=== PATIENT | female | born 1985 | race Caucasian/White ===

== ENCOUNTER 2017-10-29 12:18 | Emergency (ER) | payer MEDICAID ==
[2017-10-29] MEDS ORDERED: Ketorolac INJ* 60 MG/2 ML VIAL IM ONE (12:42)
[2017-10-29] MEDS ORDERED: Orphenadrine Citrate IV* 30 MG/ML 2 ML VIAL IM ONE (12:42)
--- NOTE | 2017-10-29 14:29 | RAD ---
HISTORY: Chronic back pain COMPARISONS: None VIEWS: 6 , Frontal, lateral, coned-down lateral sacral, and bilateral oblique views of the lumbar spine. FINDINGS: ALIGNMENT: There is straightening of the normal lumbar lordosis. VERTEBRAL BODIES: The vertebral body heights are normal. The interpedicular distances are normal. There is partial sacralization of the L5 vertebral body. JOINTS: The facet joints are normal. INTERVERTEBRAL DISCS: The intervertebral disc heights are normal. SOFT TISSUE: Unremarkable. OTHER: The pelvis is unremarkable. The lung bases are clear. IMPRESSION: UNREMARKABLE RADIOGRAPHS OF THE LUMBAR SPINE.
[2017-10-29 15:07] VITALS: BP 125/64
--- NOTE | 2017-10-31 02:44 | ED ---
Jaiden Kc Stephanie, scribed for Caleb Walker on 10/29/17 at 1252 . Back Pain - HPI Summary HPI Summary: The pt is a 32 y/o F presenting to the ED with c/o back pain that began today s/ p bending over. She reports she was leaning over a chair and felt something "pop " in right lower back and had new increased pain. Symptoms include tingling in upper extremities bilaterally. The pt reports chronic back pain for the past 2 months. The pt denies numbness and tingling in lower extremities bilaterally, incontinence and flank pain. Aggravating factors include movement, lifting and bending. - History of Current Complaint Chief Complaint: EDBackInjuryPain Stated Complaint: BACK PAIN Time Seen by Provider: 10/29/17 12:34 Hx Obtained From: Patient Hx Last Menstrual Period: 05/28/16 Onset/Duration: Sudden Onset, Lasting Hours, Still Present Onset/Duration: Started Hours Ago, Still Present Timing: Constant Severity Currently: Moderate Pain Intensity: 7 Pain Scale Used: 0-10 Numeric Aggravating Symptom(s): Movement, Lifting, Bending Alleviating Symptom(s): Nothing Associated Signs And Symptoms: Positive: Numbness - upper extremity bilaterally. Negative: Flank Pain, Bowel Incontinence - Allergies/Home Medications Allergies/Adverse Reactions: Allergies Allergy/AdvReac Type Severity Reaction Status Date / Time Ciprofloxacin AdvReac Intermediate Vomiting Verified 07/31/15 18:33 PMH/Surg Hx/FS Hx/Imm Hx Endocrine/Hematology History: Denies: Hx Diabetes, Hx Thyroid Disease Cardiovascular History: Denies: Hx Hypertension Respiratory History: Denies: Hx Asthma, Hx Chronic Obstructive Pulmonary Disease (COPD) GI History: Denies: Hx Ulcer Psychiatric History: Reports: Hx Anxiety - social, possible ADHD - Surgical History Surgery Procedure, Year, and Place: None. Infectious Disease History: No Infectious Disease History: Denies: Hx Hepatitis, Hx Human Immunodeficiency Virus (HIV), Traveled Outside the [place] in Last 30 Days - Family History Known Family History: Positive: Cardiac Disease - HTN, Other - hernia, cancer - Social History Lives: With Family Alcohol Use: None Substance Use Type: Reports: None Substance Use Comment - Amount & Last Used: Former drug user-experimented with cocaine, others in her early 20's Smoking Status (MU): Current Some Day Smoker Review of Systems Negative: Fever Negative: flank pain, incontinence Positive: Other - back pain Neurological: Other - upper extremity tingling. Negative: Lower extremity tingling All Other Systems Reviewed And Are Negative: Yes Physical Exam - Summary Physical Exam Summary: Appearance: Well appearing, no pain distress Skin: warm, dry, reflects adequate perfusion Head/face: normal Eyes: EOMI, JACQUELINE ENT: normal Neck: supple, non-tender Respiratory: CTA, breath sounds present Cardiovascular: RRR, pulses symmetrical Abdomen: non-tender, soft Bowel: present Musculoskeletal: strength/ROM intact, spastic in L side of lumbar spine Neuro: normal, sensory motor intact, A&Ox3 Triage Information Reviewed: Yes Vital Signs On Initial Exam: Initial Vitals Temp Pulse Resp BP Pulse Ox 97.8 F 99 17 127/74 97 10/29/17 12:29 10/29/17 12:29 10/29/17 12:29 10/29/17 12:29 10/29/17 12:29 Vital Signs Reviewed: Yes Diagnostics - Vital Signs Vital Signs Temp Pulse Resp BP Pulse Ox 10/29/17 12:29 97.8 F 99 17 127/74 97 - Laboratory Lab Statement: Any lab studies that have been ordered have been reviewed, and results considered in the medical decision making process. - Radiology XRay lumbar spine Xray Interpretation: No Acute Changes Radiology Interpretation Completed By: Radiologist - UNREMARKABLE RADIOGRAPHS OF THE LUMBAR SPINE. Back Pain Course/Dx - Course Course Of Treatment: The pt is a 32 y/o F presenting to the ED with c/o back pain that began today s/p bending over. ED physician discussed normal imaging results with the pt and provided pain medication. Pt feels better. Pt will be discharged and is encouraged to follow up with PCP in 3 days. - Diagnoses Provider Diagnoses: Back pain, Muscle strain Discharge - Discharge Plan Condition: Stable Disposition: HOME Referrals: Sonali Raygoza NP [Primary Care Provider] - 3 Days Additional Instructions: Pt is encouraged to follow up with PCP in 3 days. The documentation as recorded by the Jaiden carr Stephanie accurately reflects the service I personally performed and the decisions made by Aaron alvarez Emmanuel.
== END 2017-10-29 15:06 | disposition home or self-care (01) ==
LOC: ED 12:18
DX: S39.012A Strain of muscle, fascia and tendon of lower back, initial encounter (principal); X50.9XXA Other and unspecified overexertion or strenuous movements or postures, initial encounter
CPT/HCPCS: 72110; 96372; 99282; J1885; J2360

== ENCOUNTER 2018-03-09 11:22 | Emergency (ER) | payer MEDICAID ==
[2018-03-09 11:32] VITALS: BP 146/86
[2018-03-09] MEDS ORDERED: Ibuprofen TAB* 800 MG PO ONE (12:35)
--- NOTE | 2018-03-09 12:39 | ED ---
Lower Extremity - HPI Summary HPI Summary: Patient presents with right ankle pain after accidentally rolling up prior to arrival. She was walking and as she stepped off the sidewalk, she inverted her ankle. She has swelling over the lateral aspect pain in the ankle and foot and feels like the top of her foot is numb. Denies weakness although she has pain with moving her toes and ankle. She is pain with weightbearing. Denies any other injuries to this area as result of her misstep. She does admit she's rolled his ankle in the past. Has not tried anything for pain prior to arrival. NOTE:Pt reports no risk of . She is to a woman. - History of Current Complaint Chief Complaint: EDExtremityLower Stated Complaint: RT ANKLE PAIN Time Seen by Provider: 03/09/18 11:58 Hx Obtained From: Patient Hx Last Menstrual Period: 05/28/16 Pain Intensity: 7 - Allergies/Home Medications Allergies/Adverse Reactions: Allergies Allergy/AdvReac Type Severity Reaction Status Date / Time ciprofloxacin Allergy Nausea And Verified 03/09/18 11:42 Vomiting Home Medications: Home Medications Ranitidine TAB (NF) [Zantac TAB (NF)] 150 mg PO BID PRN 03/09/18 [History Confirmed 03/09/18] PMH/Surg Hx/FS Hx/Imm Hx Previously Healthy: Yes Endocrine/Hematology History: Denies: Hx Anticoagulant Therapy, Hx Blood Disorders, Hx Diabetes, Hx Thyroid Disease Cardiovascular History: Denies: Hx Hypertension Respiratory History: Denies: Hx Asthma, Hx Chronic Obstructive Pulmonary Disease (COPD) GI History: Denies: Hx Ulcer Psychiatric History: Reports: Hx Anxiety - social, possible ADHD - Surgical History Surgery Procedure, Year, and Place: None. Infectious Disease History: No Infectious Disease History: Denies: Hx Hepatitis, Hx Human Immunodeficiency Virus (HIV), Traveled Outside the [place] in Last 30 Days - Family History Known Family History: Positive: Hypertension, Other - dad - high cholesterol, emphysema; mom lymphoma - Social History Occupation: Employed Full-time - nanny - self employed Lives: With Family - and kid Alcohol Use: Weekly Hx Substance Use: No Substance Use Type: Reports: None Substance Use Comment - Amount & Last Used: Former drug user-experimented with cocaine, others in her early 20's Hx Tobacco Use: Yes Smoking Status (MU): Current Some Day Smoker Review of Systems Constitutional: Negative Positive: no symptoms reported Positive: Arthralgia, Myalgia, Decreased ROM, Edema Positive: Bruising Positive: Paresthesia Psychological: Normal All Other Systems Reviewed And Are Negative: Yes Physical Exam Triage Information Reviewed: Yes Vital Signs On Initial Exam: Initial Vitals Temp Pulse Resp BP Pulse Ox 97.7 F 88 18 146/86 99 03/09/18 11:27 03/09/18 11:27 03/09/18 11:27 03/09/18 11:27 03/09/18 11:27 Vital Signs Reviewed: Yes Appearance: Positive: Well-Appearing, Pain Distress, Obese Skin: Positive: Warm, Skin Color Reflects Adequate Perfusion, Dry - Rt lateral ankle edematous, TTP and w/ early signs of bruising - no skin breakdown Head/Face: Positive: Normal Head/Face Inspection Eyes: Positive: Normal, EOMI ENT: Positive: Hearing grossly normal Respiratory/Lung Sounds: Positive: Breath Sounds Present Cardiovascular: Positive: Pulses are Symmetrical in both Upper and Lower Extremities Musculoskeletal: Positive: Limited @ - Rt ankle, toes d/t pain Neurological: Positive: Alert, Oriented to Person Place, Time, CN Intact II- III. Negative: Sensory/Motor Intact - limited 2ndry to pain and swelling Diagnostics - Vital Signs Vital Signs Temp Pulse Resp BP Pulse Ox 03/09/18 11:27 97.7 F 88 18 146/86 99 - Laboratory Lab Statement: Any lab studies that have been ordered have been reviewed, and results considered in the medical decision making process. Lower Extremity Course/Dx - Diagnoses Provider Diagnoses: Right ankle sprain Discharge - Sign-Out/Discharge Documenting (check all that apply): Discharge/Admit/Transfer - Discharge Plan Condition: Stable Disposition: HOME Patient Education Materials: Ankle Sprain (ED), Ankle Stirrup Splint (ED), Crutch Instructions (ED) Referrals: Sonali Raygoza NP [Primary Care Provider] - Additional Instructions: REST, ICE, ELEVATE AND USE SPLINT AND BASIM WRAP TO HELP WITH SUPPORT AND SWELLING. You do not have to wear splint when you are sleeping You may take ibuprofen 800mg every 8 hours with food alternating with acetaminophen 650mg every 6 hours as needed for pain Follow-up with your PCP in 1-2 weeks if symptoms persist or worsen *If you develop numbness, tingling, weakness, swelling or skin discoloration, loosen BASIM wrap and elevate arm for 20 minutes. If symptoms persist, return to ED - Billing Disposition and Condition Condition: STABLE Disposition: Home
--- NOTE | 2018-03-09 12:40 | RAD ---
HISTORY: Rt ankle rolling injury COMPARISONS: None VIEWS: 3, Frontal, lateral, and oblique views of the right ankle FINDINGS: BONE DENSITY: Normal. BONES: There is no displaced fracture. JOINTS: There is no arthropathy. ALIGNMENT: There is no dislocation. SOFT TISSUES: There is soft tissue swelling along the lateral malleolus. OTHER FINDINGS: None. IMPRESSION: SOFT TISSUE SWELLING. NO ACUTE OSSEOUS INJURY. IF SYMPTOMS PERSIST, RECOMMEND REPEAT IMAGING.
== END 2018-03-09 12:57 | disposition home or self-care (01) ==
LOC: ED 11:22
DX: S93.401A Sprain of unspecified ligament of right ankle, initial encounter (principal); X50.0XXA Overexertion from strenuous movement or load, initial encounter; F17.200 Nicotine dependence, unspecified, uncomplicated; Z88.3 Allergy status to other anti-infective agents
CPT/HCPCS: 99283; A9270-GY

== ENCOUNTER 2018-04-06 12:09 | Emergency (ER) | payer MEDICAID ==
--- NOTE | 2018-04-06 12:57 | RAD ---
INDICATION: RIGHT wrist pain and swelling with most pain lateral aspect post fall with hyperextension. Decreased range of motion. COMPARISON: No relevant prior exams available on the [facility] for comparison. TECHNIQUE: AP and lateral views RIGHT wrist. REPORT: No cortical disruption or suspicious trabecular irregularity to suggest fracture. Normal articular alignment. Unremarkable soft tissue contours. IMPRESSION: #. No radiographic evidence for RIGHT wrist traumatic injury. #. If there is high index of suspicion for an occult scaphoid fracture repeat exam in 7 - 10 days would be suggested.
[2018-04-06 13:28] VITALS: BP 128/106
--- NOTE | 2018-04-06 13:40 | ED ---
Upper Extremity Pain - HPI Summary HPI Summary: Patient is an otherwise healthy 32-year-old female presenting to the ED with right wrist injury after falling while mowing her lawn. Injury is a FOOSH injury. Denies any numbness or tingling. Small amount of swelling to the radial side of the wrist. Denies any pain to the elbow. Denies any pain to the fingertips. She is able to make a fist. Symptoms are worse with flexion and better with full extension of the wrist. She has not taken any ibuprofen [employer]. Injury was sustained last evening. She denies any other injuries or concerns at this time. - History of Current Complaint Chief Complaint: EDExtremityUpper Stated Complaint: RT WRIST PAIN Hx Obtained From: Patient Hx Last Menstrual Period: 05/28/16 Mechanism Of Injury: Other - FOOSH injury Onset/Duration: Started Days Ago Timing: Constant Severity Initially: Moderate Severity Currently: Moderate Pain Location: Wrist Character: Aching Aggravating Factor(s): Movement, Lifting, Flexion, Extension Alleviating Factor(s): Rest, Ice Associated Signs & Symptoms: Positive: Swelling. Negative: Redness, Bruising, Numbness/Tingling, Diaphoresis, Nausea, Vomiting Related History: Dominant Hand Right - Risk Factors Non-Orthopedic Risk Factor: Negative DVT Risk Factors: Negative Septic Arthritis Risk Factor: Negative Compartment Syndrome Risk Factors: Pain - Allergies/Home Medications Allergies/Adverse Reactions: Allergies Allergy/AdvReac Type Severity Reaction Status Date / Time ciprofloxacin AdvReac Severe Nausea And Verified 04/06/18 12:13 Vomiting Home Medications: Home Medications Meloxicam [Mobic] 15 mg PO DAILY PRN 04/06/18 [History Confirmed 04/06/18] Methocarbamol TAB* [Robaxin 500 MG TAB*] 500 mg PO TID PRN 04/06/18 [History Confirmed 04/06/18] PMH/Surg Hx/FS Hx/Imm Hx Previously Healthy: Yes Endocrine/Hematology History: Denies: Hx Anticoagulant Therapy, Hx Blood Disorders, Hx Diabetes, Hx Thyroid Disease Cardiovascular History: Denies: Hx Hypertension Respiratory History: Denies: Hx Asthma, Hx Chronic Obstructive Pulmonary Disease (COPD) GI History: Denies: Hx Ulcer Psychiatric History: Reports: Hx Anxiety - social, possible ADHD - Surgical History Surgery Procedure, Year, and Place: None. - Immunization History Hx Pertussis Vaccination: No Immunizations Up to Date: Unable to Obtain/Confirm Infectious Disease History: No Infectious Disease History: Denies: Hx Hepatitis, Hx Human Immunodeficiency Virus (HIV), Traveled Outside the [place] in Last 30 Days - Family History Known Family History: Positive: Hypertension, Other - dad - high cholesterol, emphysema; mom lymphoma - Social History Occupation: Employed Part-time Lives: With Family Alcohol Use: Weekly Hx Substance Use: No Substance Use Type: Reports: None Substance Use Comment - Amount & Last Used: Former drug user-experimented with cocaine, others in her early 20's Hx Tobacco Use: Yes Smoking Status (MU): Current Some Day Smoker Review of Systems Constitutional: Negative Negative: Fever, Chills, Fatigue, Skin Diaphoresis Negative: Palpitations, Chest Pain Negative: Shortness Of Breath, Cough Negative: Abdominal Pain, Vomiting, Diarrhea, Nausea Genitourinary: Negative Positive: no symptoms reported, see HPI Positive: Arthralgia - right wrist pain Skin: Negative Neurological: Negative All Other Systems Reviewed And Are Negative: Yes Physical Exam Triage Information Reviewed: Yes Vital Signs On Initial Exam: Initial Vitals Temp Pulse Resp BP Pulse Ox 96.5 F 79 17 142/96 100 04/06/18 12:10 04/06/18 12:10 04/06/18 12:10 04/06/18 12:10 04/06/18 12:10 Vital Signs Reviewed: Yes Appearance: Positive: Well-Appearing, Well-Nourished Skin: Positive: Warm, Skin Color Reflects Adequate Perfusion Head/Face: Positive: Normal Head/Face Inspection Eyes: Positive: EOMI, JACQUELINE, Conjunctiva Clear Neck: Positive: Supple, No Lymphadenopathy Respiratory/Lung Sounds: Positive: Clear to Auscultation, Breath Sounds Present Cardiovascular: Positive: RRR, Pulses are Symmetrical in both Upper and Lower Extremities Musculoskeletal: Positive: Pain @ - right wrist with decreased ROM d/t pain - no deformity noted Neurological: Positive: Sensory/Motor Intact, Alert, Oriented to Person Place, Time, Speech Normal Psychiatric: Positive: Normal, Affect/Mood Appropriate Diagnostics - Vital Signs Vital Signs Temp Pulse Resp BP Pulse Ox 04/06/18 13:25 97.0 F 88 16 128/106 100 04/06/18 12:10 96.5 F 79 17 142/96 100 - Laboratory Lab Statement: Any lab studies that have been ordered have been reviewed, and results considered in the medical decision making process. Course/Dx - Course Course Of Treatment: During the course of treatment, the patient is evaluated for right wrist injury which occurred last evening. Denies any numbness or tingling. Pulses +2 intact bilaterally. Good cap refill. Flexion with pain, full extension without tenderness. Tenderness on palpation of the right radial side of the wrist with a small amount of swelling. X-ray obtained which shows no acute findings, however an occult scaphoid fracture could not be completely ruled out. I discussed with the patient to follow up with orthopedic clinic if symptoms fail to improve. She is agreeable to this. Thumb spica given. Ice, elevation, compression, thumb splint and will periodically attempt to provide range of motion to the thumb to assess improvement. She voices no concerns at this time. - Diagnoses Differential Diagnosis/HQI/PQRI: Positive: Fracture (Open), Strain, Sprain Provider Diagnoses: Sprain of right wrist Discharge - Sign-Out/Discharge Documenting (check all that apply): Discharge/Admit/Transfer - Discharge Plan Condition: Stable Disposition: HOME Patient Education Materials: Wrist Sprain (ED) Referrals: No Primary Care Phys,NOPCP [Primary Care Provider] - Veena Lopez MD [Medical Doctor] - Additional Instructions: Please follow up with Dr. Lopez if symptoms persist 7 days Ibuprofen 600 mg 3 times daily for the next 3-4 days Elevate as much as possible Ice to the area throughout the day Keep the splint applied until the area begins to improve and feel better - Billing Disposition and Condition Condition: STABLE Disposition: Home
== END 2018-04-06 13:35 | disposition home or self-care (01) ==
LOC: ED 12:09
DX: S63.501A Unspecified sprain of right wrist, initial encounter (principal); W01.0XXA Fall on same level from slipping, tripping and stumbling without subsequent striking against object, initial encounter; Y93.H9 Activity, other involving exterior property and land maintenance, building and construction; Z88.1 Allergy status to other antibiotic agents; F17.200 Nicotine dependence, unspecified, uncomplicated
CPT/HCPCS: 99282

== ENCOUNTER 2019-02-05 12:10 | Emergency (ER) | payer MEDICAID, OTHER ==
[2019-02-05 12:21] VITALS: BP 150/101
--- NOTE | 2019-02-05 12:58 | UC ---
Throat Pain/Nasal Howard HPI - HPI Summary HPI Summary: 33-year-old woman comes in with chief complaint of 6 days of upper story tract infection symptoms. She's had a runny nose with green rhinorrhea. She has frontal sinus pressure. When she lays down at night she gets postnasal drip and then coughs up a lot of green sputum. No wheezing no shortness of breath otherwise. She's had chills has not checked her temperature. She's been trying stain which does help with the symptoms. - History of Current Complaint Chief Complaint: UCGeneralIllness Stated Complaint: sinus Time Seen by Provider: 02/05/19 12:50 Hx Last Menstrual Period: 01/16/19 Pain Intensity: 2 - Allergies/Home Medications Allergies/Adverse Reactions: Allergies Allergy/AdvReac Type Severity Reaction Status Date / Time ciprofloxacin AdvReac Severe Nausea And Verified 02/05/19 12:21 Vomiting PMH/Surg Hx/FS Hx/Imm Hx Previously Healthy: Yes Other History Of: Negative For: Anticoagulant Therapy - Surgical History Surgical History: None Surgery Procedure, Year, and Place: None. - Family History Known Family History: Positive: Hypertension, Other - dad - high cholesterol, emphysema; mom lymphoma - Social History Alcohol Use: Weekly Substance Use Type: None Substance Use Comment - Amount & Last Used: Former drug user-experimented with cocaine, others in her early 20's Smoking Status (MU): Light Every Day Tobacco Smoker - Immunization History Most Recent Influenza Vaccination: declines Most Recent Tetanus Shot: pt declines Most Recent Pneumonia Vaccination: n/a Review of Systems All Other Systems Reviewed And Are Negative: Yes Constitutional: Positive: Chills Skin: Positive: Negative Eyes: Positive: Negative ENT: Positive: Nasal Discharge, Sinus Congestion, Sinus Pain/Tenderness Respiratory: Positive: Other - see hpi Cardiovascular: Positive: Negative Gastrointestinal: Positive: Negative Motor: Positive: Negative Neurovascular: Positive: Negative Musculoskeletal: Positive: Arthralgia Neurological: Positive: Negative Psychological: Positive: Negative Is Patient Immunocompromised?: No Physical Exam Triage Information Reviewed: Yes Appearance: Well-Appearing, No Pain Distress, Well-Nourished Vital Signs: Initial Vital Signs Temp 96.8 F 02/05/19 12:17 Pulse 86 02/05/19 12:17 Resp 18 02/05/19 12:17 BP 150/101 02/05/19 12:17 Pulse Ox 100 02/05/19 12:17 Vital Signs Reviewed: Yes Eye Exam: Normal Eyes: Positive: Conjunctiva Clear ENT: Positive: Pharyngeal erythema, Nasal congestion, Nasal drainage, TMs normal Neck: Positive: Supple Respiratory: Positive: Lungs clear, Normal breath sounds, No respiratory distress Cardiovascular: Positive: RRR Musculoskeletal Exam: Normal Musculoskeletal: Positive: Strength Intact, ROM Intact Neurological Exam: Normal Neurological: Positive: Alert, Muscle Tone Normal Psychological Exam: Normal Psychological: Positive: Age Appropriate Behavior Skin Exam: Normal Throat Pain/Nasal Course/Dx - Course Course Of Treatment: DISCUSSED VIRAL VERSES BACTERIAL INFECTION AND THE ROLE OF ANTIBIOTICS. THE PATIENT PREFERS TO BE ON ANTIBIOTICS AT THIS TIME. - Differential Dx/Diagnosis Provider Diagnosis: Sinusitis Discharge - Sign-Out/Discharge Documenting (check all that apply): Patient Departure All imaging exams completed and their final reports reviewed: No Studies - Discharge Plan Condition: Stable Disposition: HOME Prescriptions: Amoxicillin PO (*) [Amoxicillin 875 MG (*)] 875 mg PO BID #20 tab Patient Education Materials: Sinusitis (ED) Referrals: Sade Roper NP [Primary Care Provider] - Additional Instructions: FOLLOW UP WITH YOUR DOCTOR IF NOT COMPLETELY IMPROVED. GET REEVALUATED SOONER IF YOUR CONDITION WORSENS OR ANY QUESTIONS OR CONCERNS. - Billing Disposition and Condition Condition: STABLE Disposition: Home
== END 2019-02-05 13:05 | disposition home or self-care (01) ==
LOC: UCEAST 12:10
DX: J32.9 Chronic sinusitis, unspecified (principal); R68.83 Chills (without fever); Z88.1 Allergy status to other antibiotic agents; F17.200 Nicotine dependence, unspecified, uncomplicated
CPT/HCPCS: 99212; G0463

== ENCOUNTER 2019-06-14 17:22 | Emergency (ER) | payer OTHER ==
[2019-06-14 17:51] VITALS: BP 143/80
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
[2019-06-14] MEDS ORDERED: Ibuprofen TAB* 600 MG PO ONE (18:34)
--- NOTE | 2019-06-15 09:04 | UC ---
- Progress Note Progress Note: wet read correct Course/Dx - Diagnoses Provider Diagnoses: Sprain of shoulder, left Discharge ED - Sign-Out/Discharge Documenting (check all that apply): Post-Discharge Follow Up All imaging exams completed and their final reports reviewed: Yes - Discharge Plan Condition: Stable Disposition: HOME Patient Education Materials: Shoulder Sprain (ED) Referrals: [facility] [Provider Group] Guy Gomez MD [Medical Doctor] - Additional Instructions: Wear sling to rest and immobilize your left shoulder. Complete light shoulder exercises demonstrated to avoid frozen shoulder. Continue rest, ice, and over the counter pain medications as directed for pain relief. Follow up with sports medicine or orthopedics referral as listed below if pain persists or worsens. - Billing Disposition and Condition Condition: STABLE Disposition: Home
== END 2019-06-14 19:01 | disposition home or self-care (01) ==
LOC: UCEAST 17:22
DX: S43.402A Unspecified sprain of left shoulder joint, initial encounter (principal); V48.4XXA Person boarding or alighting a car injured in noncollision transport accident, initial encounter; Y92.9 Unspecified place or not applicable; F41.9 Anxiety disorder, unspecified; F17.210 Nicotine dependence, cigarettes, uncomplicated
CPT/HCPCS: 99212; A9270-GY; G0463

== ENCOUNTER 2019-07-26 16:53 | Emergency (ER) | payer OTHER ==
[2019-07-26 17:09] VITALS: BP 128/82
--- NOTE | 2019-07-26 17:26 | UC ---
Throat Pain/Nasal Howard HPI - HPI Summary HPI Summary: 34-year-old female who has had a cold for the past week and now has head congestion with sinus pressure and sinus headache. - History of Current Complaint Chief Complaint: UCRespiratory Stated Complaint: SINUS CONGESTION Time Seen by Provider: 07/26/19 17:19 Hx Obtained From: Patient Hx Last Menstrual Period: [id number] ?: No Onset/Duration: Gradual Onset Severity: Mild Pain Intensity: 4 Cough: Nonproductive Associated Signs & Symptoms: Positive: Sinus Discomfort, Nasal Discharge, Fever - Allergies/Home Medications Allergies/Adverse Reactions: Allergies Allergy/AdvReac Type Severity Reaction Status Date / Time ciprofloxacin AdvReac Severe Nausea And Verified 07/26/19 17:09 Vomiting Home Medications: Home Medications Famotidine TAB* [Pepcid 20 MG TAB*] 20 mg PO BID 07/26/19 [History Confirmed ] Omeprazole 20 mg PO DAILY PRN 07/26/19 [History Confirmed 07/26/19] PMH/Surg Hx/FS Hx/Imm Hx Previously Healthy: Yes Other History Of: Negative For: Anticoagulant Therapy - Surgical History Surgical History: None Surgery Procedure, Year, and Place: None. - Family History Known Family History: Positive: Hypertension, Other - dad - high cholesterol, emphysema; mom lymphoma - Social History Occupation: Employed Full-time Lives: With Family Alcohol Use: Weekly Substance Use Type: Marijuana Substance Use Comment - Amount & Last Used: Former drug user-experimented with cocaine, others in her early 20's Smoking Status (MU): Current Some Day Smoker Type: Cigarettes - Immunization History Most Recent Influenza Vaccination: declines Most Recent Tetanus Shot: pt declines Most Recent Pneumonia Vaccination: n/a Review of Systems All Other Systems Reviewed And Are Negative: Yes Constitutional: Positive: Fever, Chills ENT: Positive: Nasal Discharge, Sinus Congestion, Sinus Pain/Tenderness Respiratory: Positive: Cough - Occasional nonproductive cough. Is Patient Immunocompromised?: No Physical Exam Triage Information Reviewed: Yes Appearance: Well-Appearing, No Pain Distress, Well-Nourished Vital Signs: Initial Vital Signs Temp 97.3 F 07/26/19 17:06 Pulse 92 07/26/19 17:06 Resp 16 07/26/19 17:06 BP 128/82 07/26/19 17:06 Pulse Ox 99 10/24/19 17:06 Vital Signs Reviewed: Yes Eyes: Positive: Conjunctiva Clear ENT: Positive: Pharynx normal - Yellow postnasal drainage., Nasal congestion, Nasal drainage - Yellow purulent nasal coryza mostly on the left., TMs normal, Sinus tenderness - Bilateral maxillary sinus tenderness., Uvula midline Neck: Positive: Supple, Nontender, No Lymphadenopathy Respiratory: Positive: Lungs clear, Normal breath sounds, No respiratory distress, No accessory muscle use Cardiovascular: Positive: RRR, No Murmur, Pulses Normal, Brisk Capillary Refill Musculoskeletal Exam: Normal Neurological Exam: Normal Psychological Exam: Normal Skin Exam: Normal Throat Pain/Nasal Course/Dx - Course Course Of Treatment: Patient is comfortable here. I'm going to treat her for sinus infection with amoxicillin 875 mg by mouth twice a day 10 days. - Differential Dx/Diagnosis Provider Diagnosis: Sinusitis Discharge ED - Sign-Out/Discharge Documenting (check all that apply): Patient Departure All imaging exams completed and their final reports reviewed: No Studies - Discharge Plan Condition: Fair Disposition: HOME Prescriptions: Amoxicillin PO (*) [Amoxicillin 875 MG (*)] 875 mg PO BID 10 Days #20 tab Patient Education Materials: Sinusitis (ED) Referrals: Sade Roper NP [Primary Care Provider] - Additional Instructions: Increase fluids, take whatever [id number] cold medicines as directed for sinus headache and cold. Follow-up with your primary care provider in 4 or 5 days if no improvement. - Billing Disposition and Condition Condition: FAIR Disposition: Home - Attestation Statements Provider Attestation: Per institutional requirements, I have reviewed the chart, however, I was not consulted specifically or made aware of this patient by the midlevel provider. I did not personally evaluate, interact with , or disposition this patient.
== END 2019-07-26 17:53 | disposition home or self-care (01) ==
LOC: UCEAST 16:53
DX: J32.9 Chronic sinusitis, unspecified (principal); R05 Cough; F17.210 Nicotine dependence, cigarettes, uncomplicated; Z88.1 Allergy status to other antibiotic agents
CPT/HCPCS: 99212; G0463